=== PATIENT | female | born 1950 | race Caucasian/White ===

== ENCOUNTER 2021-11-15 18:58 | Emergency (ER) | payer MEDICARE, SELFPAY ==
[2021-11-15 19:08] VITALS: BP 159/67; PULSE 73; RESP 18; TEMP 36.9; O2SAT 94
--- NOTE | 2021-11-15 19:18 | ED.WOUNDLAC ---
HPI - Wound/Laceration General Chief Complaint: Wound/Laceration Stated Complaint: Dog Bite/Right Hand Time Seen by Provider: 11/15/21 19:19 Source: patient Mode of arrival: ambulatory Limitations: no limitations History of Present Illness HPI narrative: 71-year-old female presented for complaint of dog bite to the right hand today. She was playing with 7 week old puppy when it reached up and the tooth struck her hand. She states she was unable to control the bleeding. Denies numbness, tingling, weakness of the hand. Unsure of last tetanus. The puppy is up-to-date on vaccinations. Related Data Home Medications Medication Instructions Recorded Confirmed albuterol 90 mcg/actuation aerosol 90 mcg inhalation Q4H PRN Dyspnea 11/15/21 11/15/21 inhaler fluticasone furoate 100 1 inh inhalation Q24H 11/15/21 11/15/21 mcg-vilanterol 25 mcg/dose inhalation powder (Breo Ellipta) loratadine 10 mg capsule 10 mg PO DAILY 11/15/21 11/15/21 omeprazole 40 mg capsule,delayed 40 mg PO DAILY 11/15/21 11/15/21 release Allergies Allergy/AdvReac Type Severity Reaction Status Date / Time naproxen Allergy Unknown RASH Verified 11/15/21 19:27 Review of Systems Review of Systems: CONSTITUTIONAL: Denies body aches, fever, chills, or sweats. CARDIOVASCULAR: Denies chest pain, palpitations, or edema. RESPIRATORY: Denies cough or dyspnea. SKIN: reports hand wound MUSCULOSKELETAL: Denies back pain, joint pain, or myalgia. NEUROLOGIC: Denies headache, numbness, tingling, or weakness. [facility] Family History Family History Father Family history of arthritis Family history of neuropathy Mother Family history of chronic obstructive pulmonary disease Grandparent Carcinoma of colon Family history of heart disease in male family member before age 55 Sibling Family history of malignant neoplasm of breast in first degree relative Family history of neuropathy Social History Social History Smoking status: Never smoker Alcohol intake: never Comments At time of signature, I have reviewed and agree with nursing past medical, surgical, social and family history unless otherwise noted. Please see nursing chart for further information. There is no relevant family history pertinent to the presenting complaint Exam Narrative: GENERAL: Well-appearing EYES: conjunctivae clear, and EOMI. ENT: Mucous membranes moist. Oropharynx without edema, erythema or lesions. CHEST: Clear to auscultation. HEART: Regular rate and rhythm. SKIN/EXT: Warm, dry. Right hand laceration over dorsal surface proximal thumb approx 1.5cmx.5cm, bleeding controlled. puncture to distal radial forearm. Full ROM to hand and fingers. No apparent nerve or tendon involvement. NEURO: Alert and oriented x3. PSYCH: Normal mood and affect Course Course Emergency Course: Patient is aware of diagnosis, understands and agrees to treatment plan. Anticipatory guidance given. Patient agrees to follow-up as directed and is aware of reasons to seek care at the emergency department. Portions of this record may have been created with voice recognition software Level of Care: Express Care Visit Vital Signs Vital signs: Vital Signs Temperature 98.4 F 11/15/21 19:08 Pulse Rate 73 11/15/21 19:08 Respiratory Rate 18 11/15/21 19:08 Blood Pressure 159/67 H 11/15/21 19:08 Pulse Oximetry 94 11/15/21 19:08 Oxygen Delivery Room Air 11/15/21 19:08 Temperature 98.4 F 11/15/21 19:28 Pulse Rate 73 11/15/21 19:28 Respiratory Rate 18 11/15/21 19:28 Blood Pressure 159/67 H 11/15/21 19:28 Pulse Oximetry 94 11/15/21 19:28 Oxygen Delivery Room Air 11/15/21 19:28 Reviewed Procedures Laceration Laceration 1: Date: 11/15/21 Site: upper extremity (hand) Side (If applicable): right Size (cm): 1.5
[2021-11-15 19:28] VITALS: BP 159/67; PULSE 73; RESP 18; TEMP 36.9; O2SAT 94
[2021-11-15] MEDS: TETANUS,DIPHTHERIA,AC PERTUSSIS ADULT (0.5 ML) BOOSTRIX IM (19:31)
== END 2021-11-15 19:54 | disposition home or self-care (01) ==
PROVIDERS: Emergency Provider Nurse Practitioner Family; PCP Hospitalist
DX: S61.411A Laceration without foreign body of right hand, initial encounter (principal); S51.831A Puncture wound without foreign body of right forearm, initial encounter; W54.0XXA Bitten by dog, initial encounter; Z23 Encounter for immunization; J45.909 Unspecified asthma, uncomplicated; K21.9 Gastro-esophageal reflux disease without esophagitis
CPT/HCPCS: 90471; 90715; 99203; G0463